=== PATIENT | female | born 1950 | race Two or more races ===

== ENCOUNTER 2018-03-08 15:43 | Emergency (ER) | payer SELFPAY ==
[~2018-03-08] VITALS: Ht 149.9 cm; Wt 64.0 kg
[2018-03-08] MEDS ORDERED: diphenhydrAMINE HCL 25 MG CAPSULE ONE (16:09)
[2018-03-08] MEDS ORDERED: LOSARTAN POTASSIUM 25 MG TABLET ONE (16:09)
[2018-03-08] MEDS ORDERED: IBUPROFEN 400 MG TABLET ONE (16:09)
[2018-03-08] MEDS ORDERED: ACETAMINOPHEN ES 500 MG TABLET ONE (16:09)
[2018-03-08] MEDS ORDERED: METFORMIN XR 500 MG TAB.SR.24H PO ONE (16:10)
[2018-03-08] MEDS ORDERED: LOSARTAN POTASSIUM 25 MG TABLET PO ONE (16:30)
[2018-03-08] MEDS ORDERED: IBUPROFEN 400 MG TABLET PO ONE (16:30)
[2018-03-08] MEDS ORDERED: diphenhydrAMINE HCL 25 MG CAPSULE PO ONE (16:30)
[2018-03-08] MEDS ORDERED: METFORMIN XR 500 MG TAB.SR.24H PO SCH (16:30)
[2018-03-08] MEDS ORDERED: ACETAMINOPHEN ES 500 MG TABLET PO ONE (16:30)
[2018-03-08 17:31] VITALS: BP 150/90
== END 2018-03-08 17:32 | disposition home or self-care (01) ==
LOC: ER 15:48
DX: R51 Headache (principal); I10 Essential (primary) hypertension; E11.65 Type 2 diabetes mellitus with hyperglycemia; Z76.0 Encounter for issue of repeat prescription; Z90.710 Acquired absence of both cervix and uterus
CPT/HCPCS: 82962-TC; Q0163